=== PATIENT | male | born 1950 | race African-American/Black ===

== ENCOUNTER 2019-02-24 20:10 | Observation (INO) ==
[2019-02-24] MEDS ORDERED: ASPIRIN PO ONE (20:26)
[2019-02-24 20:42] VITALS: BMI 33.7
[2019-02-24] MEDS: NS 1000 ML 1,000 ML IV SCH (20:43)
[2019-02-24 20:47] LABS: BASOPHILS % (AUTO) 0.8 % (0.2-1.0); EOSINOPHILS # (AUTO) 0.2 x10^3/uL (0.0-0.2); EOSINOPHILS % (AUTO) 3.4 % (0.9-2.9); HEMATOCRIT 40.3 % (42.0-54.0); HEMOGLOBIN 13.7 g/dL (13.5-18.0); LYMPHOCYTES # (AUTO) 1.8 X10^3/uL (1.3-2.9); LYMPHOCYTES % (AUTO) 34.1 % (21.0-51.0); MEAN CORPUSCULAR HEMOGLOBIN 30.2 pg (27.0-34.0); MONOCYTES # (AUTO) 0.6 x10^3/uL (0.3-0.8); MONOCYTES % (AUTO) 11.6 % (0.0-13.0); NEUTROPHILS # (AUTO) 2.6 x10^3/uL (2.2-4.8); NEUTROPHILS % (AUTO) 50.1 % (42.0-75.0); PLATELET COUNT 180 X10^3/uL (150.0-450.0); RED BLOOD COUNT 4.53 X10^6/uL (4.7-6.0); RED CELL DISTRIBUTION WIDTH 14.8 % (11.6-16.5); WHITE BLOOD COUNT 5.1 X10^3/uL (3.6-10.0)
[2019-02-24 21:25] LABS: BLOOD UREA NITROGEN 19 mg/dL (7-18); CALCIUM 9.4 mg/dL (8.5-10.1); CARBON DIOXIDE 27.7 mmol/L (21-32); CHLORIDE 105 mmol/L (98-107); CREATININE 1.36 mg/dL (0.70-1.30); SODIUM 140 mmol/L (136-145); TROPONIN I < 0.02 ng/mL (0-1.5); eGFR NON BLACK RACES 55 (>60)
[2019-02-24 21:29] LABS: ALANINE AMINOTRANSFERASE 21 Units/L (12-78); ALBUMIN 3.6 g/dL (3.4-5.0); ALKALINE PHOSPHATASE 66 Units/L (46-116); ASPARTATE AMINO TRANSFERASE 16 Units/L (15-37); CKMB % 0.9 % (<4); CREATINE KINASE 296 Units/L (39-308); CREATINE KINASE MB 2.7 ng/mL (0-4.0); MAGNESIUM 1.7 mg/dL (1.7-2.9); TOTAL PROTEIN 7.7 g/dL (6.4-8.2)
--- NOTE | 2019-02-24 22:03 | DR.CP ---
HPI Time Seen Time Seen by Provider: 02/24/19 20:46 PCP Primary Care Physician: RACQUEL SOTELO Complaint Chief Complaint:: INT. RIGHT SIDED CHEST PAIN FOR 3 DAYS, SHORTNESS OF BREATH, FATIGUE FOR 1WK. Source History Provided: Patient, Family Member and Guardian Mode of Arrival Mode of Arrival: Ambulatory Timing Onset of Chief Complaint: 02/22/19 Location Chest Pain Radiation Location: None Associated Signs and Symptoms Associated Signs and Symptoms: Shortness of Breath and Other PMH PMH Past Medical History: Yes Past Medical History: Arthritis, Diabetes and Hypertension Past Medical History Comment: CEREBRAL PALSY, CHRONIC BRONCHITIS Past Surgical History: No Past Surgical History Comment: CARDIAC CATH 10YRS AGO IN [place] Family History History of Family Medical Conditions: Yes Social History Does patient currently use any type of tobacco product: No Have you used tobacco products in the last 12 months: No Type of Tobacco Use: None Does any household member use tobacco: No Alcohol Use: None Do you use any recreational Drugs:: No Lives With: Family Lives Where: Home infectious screening In the last 2 months have you had wt loss of >10#?: NO Have you had fever, night sweats or hemotysis?: No Have you traveled outside the country in the last 6 months?: No Isolation: Standard ROS Review of Systems Constitutional: No Symptoms Reported Eyes: No Symptoms Reported ENTM: No Symptoms Reported Respiratoy: No Symptoms Reported Cardiovascular: No Symptoms Reported Gastrointestinal/Abdominal: No Symptoms Reported Genitourinary: No Symptoms Reported Neurological: No Symptoms Reported Musculoskeletal: No Symptoms Reported Integumentary: No Symptoms Reported Hematologic/Lymphatic: No Symptoms Reported Endocrine: No Symptoms Reported Psychiatric: No Symptoms Reported All Other Systems: Reviewed and Negative PE Vitals Vitals: Temperature 98.7 F Pulse Rate [Left Radial] 69 Pulse Rate [Apical] 74 Pulse Rate 69 Respiratory Rate 18 Blood Pressure [Left Arm] 159/98 Blood Pressure 202/111 O2 Sat by Pulse Oximetry 98 General Limitations: No Limitations General Appearance: Alert Head Head Exam: Normal Inspection, Atraumatic and Normocephalic Eyes Eye exam: Normal Appearance, PERRL and EOMI ENT ENT Exam: Normal Exam, Normal Oropharynx and Normal External Ear Exam Chest Chest Inspection: Normal Inspection, Symmetric Chest Wall Rise and Tenderness Respiratory Respiratory Exam: Normal Lung Sounds Bilat Respiratory Exam: Bilateral: Clear to Auscultation Cardiovascular Cardiovascular Exam: Regular Rate and Normal Rhythm Pulse: Normal and Radial Abdominal Exam Abdominal Exam: Normal Inspection, Normal Bowel Sounds and Soft Extremities Extremities Exam: Normal Inspection and Full ROM Back Back Exam: Normal Inspection and Full ROM Neurologic Neurological Exam: Alert and Oriented X3 Psychiatric Psychiatric Exam: Normal Affect Skin Skin Exam: Warm, Dry, Intact, Normal Color and Rash ROR Labs Reviewed Laboratory Results Reviewed?: Yes Result Diagrams: 02/25/19 03:06 02/25/19 03:06 Laboratory: WBC 5.0 X10^3/uL (3.6-10.0) 02/25/19 03:06 RBC 4.19 X10^6/uL (4.7-6.0) L 02/25/19 03:06 Hgb 12.4 g/dL (13.5-18.0) L 02/25/19 03:06 Hct 37.4 % (42.0-54.0) L 02/25/19 03:06 MCV 89.3 fL (80.0-100.0) 02/25/19 03:06 MCH 29.6 pg (27.0-34.0) 02/25/19 03:06 MCHC 33.2 g/dL (33.0-35.0) 02/25/19 03:06 RDW 15.4 % (11.6-16.5) 02/25/19 03:06 Plt Count 146 X10^3/uL (150.0-450.0) L 02/25/19 03:06 MPV 8.0 fL (7.4-11.0) 02/25/19 03:06 Neut % (Auto) 58.3 % (42.0-75.0) 02/25/19 03:06 Lymph % (Auto) 26.3 % (21.0-51.0) 02/25/19 03:06 [place] % (Auto) 12.0 % (0.0-13.0) 02/25/19 03:06 Eos % (Auto) 2.9 % (0.9-2.9) 02/25/19 03:06 Baso % (Auto) 0.5 % (0.2-1.0) 02/25/19 03:06 Neut # (Auto) 2.9 x10^3/uL (2.2-4.8) 02/25/19 03:06 Lymph # (Auto) 1.3 X10^3/uL (1.3-2.9) 02/25/19 03:06 [place] # (Auto) 0.6 x10^3/uL (0.3-0.8) 02/25/19 03:06 Eos # (Auto) 0.1 x10^3/uL (0.0-0.2) 02/25/19 03:06 Baso # (Auto) 0.0 X10^3/uL (0.0-0.1) 02/25/19 03:06 Absolute Nucleated RBC 0.0 /100WBC 02/25/19 03:06 INR Target Range - 02/24/19 20:56 INR 1.30 (0.8-1.3) 02/24/19 20:56 APTT 28.1 SECONDS (22.9-36.5) 02/24/19 20:56 PTT Comment - 02/24/19 20:56 Sodium 140 mmol/L (136-145) 02/25/19 03:06 Corrected Sodium 142 mmol/L (136-145) 02/25/19 03:06 Potassium 3.9 mmol/L (3.5-5.1) 02/25/19 03:06 Chloride 105 mmol/L (98-107) 02/25/19 03:06 Carbon Dioxide 31.2 mmol/L (21-32) 02/25/19 03:06 BUN 19 mg/dL (7-18) H 02/25/19 03:06 Creatinine 1.49 mg/dL (0.70-1.30) H 02/25/19 03:06 Est GFR (MDRD) Af Amer 60 (>60) 02/25/19 03:06 Est GFR (MDRD) Non-Af 50 (>60) L 02/25/19 03:06 Glucose 204 mg/dL (65-99) H 02/25/19 03:06 Calcium 8.9 mg/dL (8.5-10.1) 02/25/19 03:06 Corrected Calcium 9.5 mg/dL (8.5-10.1) 02/25/19 03:06 Magnesium 1.7 mg/dL (1.7-2.9) 02/24/19 20:56 Total Bilirubin 0.50 mg/dL (0.2-1.0) 02/25/19 03:06 AST 15 Units/L (15-37) 02/25/19 03:06 ALT 20 Units/L (12-78) 02/25/19 03:06 Alkaline Phosphatase 61 Units/L (46-116) 02/25/19 03:06 Creatine Kinase 242 Units/L (39-308) 02/25/19 03:06 CK-MB (CK-2) 1.6 ng/mL (0-4.0) 02/25/19 03:06 CK/CKMB % Calc 0.7 % (<4) 02/25/19 03:06 Troponin I < 0.02 ng/mL (0-1.5) 02/25/19 03:06 Total Protein 7.0 g/dL (6.4-8.2) 02/25/19 03:06 Albumin 3.2 g/dL (3.4-5.0) L 02/25/19 03:06 Globulin 3.8 g/dL (2.5-4.5) 02/25/19 03:06 Albumin/Globulin Ratio 0.8 Ratio (1.1-2.1) L 02/25/19 03:06 Specimen Type Clean catch urine 02/25/19 03:15 Urine Color Yellow (YELLOW) 02/25/19 03:15 Urine Appearance Clear (CLEAR) 02/25/19 03:15 Urine pH 5.0 (5.0 - 8.0) 02/25/19 03:15 Ur Specific [place] 1.020 (1.000-1.030) 02/25/19 03:15 Urine Protein Negative (NEGATIVE) 02/25/19 03:15 Urine Glucose (UA) 4+ (NEGATIVE) 02/25/19 03:15 Urine Ketones Negative (NEGATIVE) 02/25/19 03:15 Urine Occult Blood Negative (NEGATIVE) 02/25/19 03:15 Urine Nitrite Negative (NEGATIVE) 02/25/19 03:15 Urine Bilirubin Negative (NEGATIVE) 02/25/19 03:15 Urine Urobilinogen Normal (NORMAL) 02/25/19 03:15 Ur Leukocyte Esterase Negative (NEGATIVE) 02/25/19 03:15 Urine RBC None seen /HPF (NONE SEEN) 02/25/19 03:15 Urine WBC None seen /HPF (NONE SEEN) 02/25/19 03:15 Ur Squamous Epith Cells Rare /HPF (NEGATIVE) 02/25/19 03:15 Urine Bacteria Negative /HPF (NEGATIVE) 02/25/19 03:15 Ur Culture Indicated? No/not indicated 02/25/19 03:15 XRAY XRAY Interpreted by: Radiologist XRAY Findings: Chest: No acute cardiopulmonary disease Diagnosis Discharge Problem: Chest pain, rule out acute myocardial infarction
--- NOTE | 2019-02-24 22:09 | RAD ---
HISTORY: 68-year-old male with right-sided chest pain for 3 days and shortness of breath. Study: Frontal view of the chest. Comparison: None. Findings: The trachea is midline. The cardiac silhouette is unremarkable. The lungs are clear without focal consolidation, effusion or pneumothorax. Soft tissues are unremarkable. Osseous structures are unremarkable. IMPRESSION: 1. No acute cardiopulmonary disease. Reported By:
[2019-02-25] MEDS ORDERED: HumuLIN R SUBCUT PRN (01:54)
[2019-02-25] MEDS ORDERED: NS 1000 ML 1,000 ML IV SCH (02:00)
[2019-02-25 03:26] LABS: BILIRUBIN,URINE NEGATIVE (NEGATIVE); BLOOD/HEMOGLOBIN,URINE NEGATIVE (NEGATIVE); GLUCOSE, URINE 4+ (NEGATIVE); KETONES,URINE NEGATIVE (NEGATIVE); LEUKOCYTE ESTERASE ,URINE NEGATIVE (NEGATIVE); NITRITES,URINE NEGATIVE (NEGATIVE); PROTEIN,URINE NEGATIVE (NEGATIVE); UROBILINOGEN,URINE NORMAL (NORMAL)
[2019-02-25 03:28] LABS: BASOPHILS % (AUTO) 0.5 % (0.2-1.0); EOSINOPHILS # (AUTO) 0.1 x10^3/uL (0.0-0.2); EOSINOPHILS % (AUTO) 2.9 % (0.9-2.9); HEMATOCRIT 37.4 % (42.0-54.0); HEMOGLOBIN 12.4 g/dL (13.5-18.0); LYMPHOCYTES # (AUTO) 1.3 X10^3/uL (1.3-2.9); LYMPHOCYTES % (AUTO) 26.3 % (21.0-51.0); MEAN CORPUSCULAR HEMOGLOBIN 29.6 pg (27.0-34.0); MEAN CORPUSCULAR HGB CONC 33.2 g/dL (33.0-35.0); MEAN CORPUSCULAR VOLUME 89.3 fL (80.0-100.0); MONOCYTES # (AUTO) 0.6 x10^3/uL (0.3-0.8); NEUTROPHILS # (AUTO) 2.9 x10^3/uL (2.2-4.8); NEUTROPHILS % (AUTO) 58.3 % (42.0-75.0); PLATELET COUNT 146 X10^3/uL (150.0-450.0); RED BLOOD COUNT 4.19 X10^6/uL (4.7-6.0); RED CELL DISTRIBUTION WIDTH 15.4 % (11.6-16.5)
[2019-02-25 03:33] LABS: APPEARANCE,URINE CLEAR (CLEAR); COLOR,URINE YELLOW (YELLOW)
[2019-02-25 03:34] LABS: BACTERIA,URINE NEGATIVE /HPF (NEGATIVE); RBC,URINE NONE SEEN /HPF (NONE SEEN); SQUAMOUS EPITHELIAL CELL,UR RARE /HPF (NEGATIVE)
[2019-02-25 03:43] LABS: ALANINE AMINOTRANSFERASE 20 Units/L (12-78); ALBUMIN 3.2 g/dL (3.4-5.0); ALKALINE PHOSPHATASE 61 Units/L (46-116); ASPARTATE AMINO TRANSFERASE 15 Units/L (15-37); BLOOD UREA NITROGEN 19 mg/dL (7-18); CALCIUM 8.9 mg/dL (8.5-10.1); CARBON DIOXIDE 31.2 mmol/L (21-32); CHLORIDE 105 mmol/L (98-107); CKMB % 0.7 % (<4); COR CA(FOR HYPOALB) 9.5 mg/dL (8.5-10.1); COR NA(FOR HYPERGLY) 142 mmol/L (136-145); CREATINE KINASE 242 Units/L (39-308); CREATINE KINASE MB 1.6 ng/mL (0-4.0); CREATININE 1.49 mg/dL (0.70-1.30); SODIUM 140 mmol/L (136-145); TROPONIN I < 0.02 ng/mL (0-1.5); eGFR NON BLACK RACES 50 (>60)
[2019-02-25 09:02] LABS: CKMB % 0.7 % (<4); CREATINE KINASE 240 Units/L (39-308); CREATINE KINASE MB 1.6 ng/mL (0-4.0); TROPONIN I < 0.02 ng/mL (0-1.5)
[2019-02-25] MEDS ORDERED: ECOTRIN TAB 325 MG PO SCH (10:00)
[2019-02-25 10:11] LABS: CHOL/HDL RATIO 3.7 (0.0-5.0)
[2019-02-25] MEDS: NS 1000 ML 1,000 ML IV SCH (11:37)
[2019-02-25] MEDS ORDERED: PHARMACY CONSULT - DOSE _____ XX SCH (13:00)
[2019-02-25] MEDS ORDERED: PROVENTIL NEB TX 0.083% 2.5MG/ 3ML NEB PRN (13:00)
[2019-02-25] MEDS: THEO-DUR TAB 300 MG PO SCH (13:48)
[2019-02-25] MEDS: ZESTRIL TAB 40 MG PO SCH (13:48)
[2019-02-25] MEDS: XALATAN OP SCH (13:48)
[2019-02-25] MEDS: COREG TAB 6.25 MG PO SCH (13:48)
[2019-02-25] MEDS: GLUCOTROL PO SCH (13:48)
[2019-02-25] MEDS: CALAN SR 240 MG PO SCH (13:48)
[2019-02-25] MEDS: LOVENOX INJ 40 MG SYR SC SCH (13:49)
--- NOTE | 2019-02-25 15:58 | VAS ---
Exam: Carotid Doppler exam History: 68-year-old male with dizziness. Evaluate for possible carotid artery stenosis. Comparison: None Findings: No significant plaque is seen in either carotid system. On the right, peak systolic velocities in cm/sec of the right internal and common carotid arteries measure 30 and 35. The greatest ICA/CCA ratio on the right is 0.91. On the left, peak systolic velocities in cm/sec of the left internal and common carotid arteries measure 32 and 53. The greatest ICA/CCA ratio on the left is 0.60 Antegrade flow is documented in the right vertebral artery. The left vertebral artery is unable to be visualized on this exam. Impression: 1. No hemodynamically significant carotid stenosis is seen on either side. 2. Antegrade flow is noted in the right vertebral artery. However the left vertebral artery was unable to be visualized on this exam. Reported By:
--- NOTE | 2019-02-25 19:08 | DR.H&P ---
H&P - History & Physical for Day of: H&P Date: 02/25/19 - Chief Complaint Chief Complaint: CHEST PAIN - History of Present Illness History of Present Illness: IS A 68 YEAR OLD PATIENT OF . HE PRESENTED TO THE ER WITH COMPLAINTS OF RIGHT SIDED CHEST PAIN, SHORTNESS OF BREATH, AND FATIGUE. SYMPTOMS STARTED APPROXIMATELY THREE DAYS AGO. HE HAS A MEDICAL HISTORY OF HTN, DIABETES, AND CHRONIC BRONCHITIS. HE HAD A CARDIAC CATH APPROXIMATELY 10 YEARS AGO. [place], VITALS WERE 98.4-69-18-99%-202/111. LABS WERE OBTAINED. ABNORMAL LAB VALUES INCLUDE THE FOLLOWING: RBC 4.53, HCT 40.3, BUN 19, CREATININE 1.36. EKG REVEALED SINUS RHYTHM WITH HR 69. A CHEST XRAY WAS OBTAINED AND REVEALED: NO ACUTE CARDIOPULMONARY DISEASE. HE WAS GIVEN ECOTRIN 325MG PO X 1. HE WAS ADMITTED FOR FURTHER EVALUATION AND TREATMENT OF CHEST PAIN , RULE OUT ACUTE OK. WE WILL OBTAIN SERIAL CARDIAC ENZYMES, EKGS, AN ECHO, AND A CAROTID DOPPLER TODAY. HE WAS STARTED ON NORMAL SALINE AT 75ML/HR, CRESTOR 10MG PO HS, ECOTRIN 325MG PO DAILY, AND HIS HOME MEDICATIONS WERE RESUMED. WE PLAN TO FOLLOW UP WITH AM LABS AND CONTINUE TO MONITOR. - Past Medical History Past Medical History: Hypertension, Diabetes, Arthritis - Family History Family Medical History: Diabetes Mellitus, Hypertension - Social History Does patient currently use any type of tobacco product: No Have you used tobacco products in the last 12 months: No Type of Tobacco Use: None Does any household member use tobacco: No Alcohol Use: None Drug Use: None - Medications Home Medications: No Known Drug Allergies Allergy (Verified 02/24/19 20:34) CONTINUE taking the following medications albuterol sulfate [ProAir HFA] 2 puff INHALATION Q4-6H PRN 02/24/19 [History] carvedilol 6.25 mg PO DAILY 02/24/19 [History] chlorpheniramine maleate 4 mg PO TID PRN 02/24/19 [History] clonidine HCl 0.3 mg PO TID 02/24/19 [History] glipizide 5 mg PO DAILY 02/24/19 [History] latanoprost 1 drp OPHTHALMIC (EYE) QDAY 02/24/19 [History] lisinopril 40 mg PO DAILY 02/24/19 [History] metformin 1,000 mg PO BID 02/24/19 [History] montelukast 10 mg PO HS 02/24/19 [History] theophylline 150 mg PO DAILY 02/24/19 [History] verapamil 240 mg PO DAILY 02/24/19 [History] - Review of Systems Constitutional: Weakness, Malaise Eyes: No Symptoms Reported ENT: No Symptoms Reported Respiratory: Shortness of Breath, SOB with Excertion Cardiovascular: Chest Pain Gastrointestinal: No Symptoms Reported Genitourinary: No Symptoms Reported Musculoskeletal: No Symptoms Reported Skin: No Symptoms Reported Neurological: Weakness - Physical Exam Vital Signs: Temperature 97.7 F Pulse Rate [Left Radial] 73 Pulse Rate [Apical] 74 Pulse Rate 69 Respiratory Rate 20 Blood Pressure [Left Arm] 181/96 Blood Pressure 202/111 O2 Sat by Pulse Oximetry 98 Oriented: Normal Eyes: Normal Ear: Normal Nose: Normal Throat: Normal Respiratory: Diminished Throughout Cardiovascular: Normal : Normal Auscultation: Bowel Sounds: Normal Palpation: Normal Tenderness: Normal Skin: Normal Musculoskeletal: Normal Psychiatric: Normal Mood Description: Calm Affect: Normal Speech Pattern: Clear - Assessment/Plan (1) Chest pain, rule out acute myocardial infarction Status: Acute Plan: SERIAL CARDIAC ENZYMES, EKGs, ECHO, CAROTID DOPPLER, CONTINUE TO MONITOR (2) Hypertension Qualifiers: Hypertension type: essential hypertension Qualified Code(s): I10 - Essential (primary) hypertension Status: Acute Plan: CONTINUE HOME MEDS - Allergies Allergies/Adverse Reactions: Allergies Allergy/AdvReac Type Severity Reaction Status Date / Time No Known Drug Allergies Allergy Verified 02/24/19 20:34
[2019-02-25] MEDS ORDERED: SNACK - Diabetic Appropriate PO SCH (20:00)
[2019-02-25] MEDS ORDERED: CATAPRES-TTS-2 TD SCH (20:00)
[2019-02-25] MEDS ORDERED: GLUCOPHAGE ONE (20:52)
[2019-02-25] MEDS ORDERED: CRESTOR TAB 10 MG PO SCH (21:00)
[2019-02-25] MEDS ORDERED: SINGULAIR TAB 10 MG PO SCH (21:00)
[2019-02-25] MEDS: GLUCOPHAGE PO SCH (21:05)
[2019-02-26] MEDS: NS 1000 ML 1,000 ML IV SCH (03:23)
[2019-02-26 05:38] LABS: BASOPHILS % (AUTO) 0.6 % (0.2-1.0); EOSINOPHILS # (AUTO) 0.2 x10^3/uL (0.0-0.2); EOSINOPHILS % (AUTO) 3.5 % (0.9-2.9); HEMATOCRIT 39.7 % (42.0-54.0); HEMOGLOBIN 13.5 g/dL (13.5-18.0); LYMPHOCYTES # (AUTO) 1.6 X10^3/uL (1.3-2.9); LYMPHOCYTES % (AUTO) 31.8 % (21.0-51.0); MEAN CORPUSCULAR HEMOGLOBIN 30.4 pg (27.0-34.0); MEAN CORPUSCULAR HGB CONC 33.9 g/dL (33.0-35.0); MEAN CORPUSCULAR VOLUME 89.7 fL (80.0-100.0); MEAN PLATELET VOLUME 8.4 fL (7.4-11.0); MONOCYTES # (AUTO) 0.6 x10^3/uL (0.3-0.8); MONOCYTES % (AUTO) 11.2 % (0.0-13.0); NEUTROPHILS # (AUTO) 2.7 x10^3/uL (2.2-4.8); NEUTROPHILS % (AUTO) 52.9 % (42.0-75.0); PLATELET COUNT 161 X10^3/uL (150.0-450.0); RED BLOOD COUNT 4.43 X10^6/uL (4.7-6.0); RED CELL DISTRIBUTION WIDTH 14.6 % (11.6-16.5); WHITE BLOOD COUNT 5.2 X10^3/uL (3.6-10.0)
[2019-02-26 05:40] LABS: ALANINE AMINOTRANSFERASE 20 Units/L (12-78); ALBUMIN 3.4 g/dL (3.4-5.0); ALKALINE PHOSPHATASE 66 Units/L (46-116); ASPARTATE AMINO TRANSFERASE 16 Units/L (15-37); BLOOD UREA NITROGEN 15 mg/dL (7-18); CARBON DIOXIDE 29.9 mmol/L (21-32); CHLORIDE 106 mmol/L (98-107); COR NA(FOR HYPERGLY) 142 mmol/L (136-145); CREATININE 1.37 mg/dL (0.70-1.30); SODIUM 142 mmol/L (136-145); TOTAL PROTEIN 7.5 g/dL (6.4-8.2); eGFR NON BLACK RACES 55 (>60)
[2019-02-26 05:58] LABS: CALCIUM 9.2 mg/dL (8.5-10.1)
[2019-02-26] MEDS ORDERED: ECOTRIN TAB 325 MG PO SCH (09:00)
[2019-02-26] MEDS ORDERED: GLUCOPHAGE ONE (09:04)
[2019-02-26] MEDS: LOVENOX INJ 40 MG SYR SC SCH (09:08)
[2019-02-26] MEDS: ZESTRIL TAB 40 MG PO SCH (09:09)
[2019-02-26] MEDS: GLUCOPHAGE PO SCH (09:10)
[2019-02-26] MEDS: THEO-DUR TAB 300 MG PO SCH (09:10)
[2019-02-26] MEDS: CALAN SR 240 MG PO SCH (09:11)
[2019-02-26] MEDS: COREG TAB 6.25 MG PO SCH (09:11)
[2019-02-26] MEDS: XALATAN OP SCH (09:11)
[2019-02-26] MEDS: GLUCOTROL PO SCH (09:11)
[2019-02-26 09:41] VITALS: BP 187/107
[2019-02-26] MEDS ORDERED: CATAPRES-TTS-3 TD SCH (10:00)
== END 2019-02-26 10:40 | disposition home or self-care (01) ==
LOC: MED/SURG 20:24 → ER 20:24 → MED/SURG 02-25 02:10
PROVIDERS: ADMIT Internal Medicine; ATTEND Internal Medicine
DX: I10 Essential (primary) hypertension; R06.02 Shortness of breath; R94.31 Abnormal electrocardiogram [ECG] [EKG]; E11.65 Type 2 diabetes mellitus with hyperglycemia; Z79.899 Other long term (current) drug therapy; R94.4 Abnormal results of kidney function studies; R26.89 Other abnormalities of gait and mobility; R07.89 Other chest pain
CPT/HCPCS: 36415; 71010; 71045; 80053; 80061; 81001; 82550; 82553; 83735; 84484; 85025; 85610; 85730; 93005; 93306; 93880; 94760; 96365; 96367; 97161; 97166; 97530; 99284; A4216; A4222; G0378; J1650; J7030